=== PATIENT | female | born 1940 | race Caucasian/White ===

== ENCOUNTER → 2016-04-13 | Outpatient (REF) | payer MEDICARE, BC ==
[2016-04-13 13:16] LABS: ALBUMIN 3.7 GM/DL (3.2-5.2); ALBUMIN/GLOBULIN RATIO 0.9 (1.00-1.93); BILIRUBIN,TOTAL 0.6 MG/DL (0.2-1.0); CALCIUM LEVEL 9.4 MG/DL (8.8-10.2); CREATININE FOR GFR 0.97 MG/DL (0.55-1.02); FREE T4 1.44 NG/DL (0.76-1.46); GLOMERULAR FILTRATION RATE 59.3 (>39); TOTAL PROTEIN 7.8 GM/DL (6.4-8.2)
[2016-04-13 13:19] LABS: BASO # 0.1 K/mm3 (0.0-0.2); BASO % 1.1 % (0.0-1.0); EOS # 0.1 K/mm3 (0.0-0.50); EOS % 1.9 % (0.0-3.0); LARGE UNSTAINED CELL # 0.1 K/mm3 (0.0-0.4); LARGE UNSTAINED CELL % 1.8 % (0.0-4.0); LYMPH % 34.2 % (24.0-44.0); MEAN CORPUSCULAR HEMOGLOBIN 29.4 pg (27.0-33.0); MEAN CORPUSCULAR HGB CONC 32.6 g/dl (32.0-36.5); MEAN CORPUSCULAR VOLUME 90.1 fl (80.0-96.0); MONO # 0.5 K/mm3 (0.0-0.8); MONO % 8.6 % (0.0-5.0); NEUTROPHILS # 2.9 K/mm3 (1.8-7.7); NEUTROPHILS % 52.4 % (36.0-66.0); PLATELET COUNT, AUTOMATED 121 k/mm3 (150-450); RED CELL DISTRIBUTION WIDTH 12.8 % (11.5-14.5); WHITE BLOOD COUNT 5.5 K/mm3 (4.0-10.0)
== END ==
LOC: M SFHCADAM 08:24
PROVIDERS: ATTEND Family Medicine
DX: M32.8 Other forms of systemic lupus erythematosus (principal); E03.9 Hypothyroidism, unspecified; E66.9 Obesity, unspecified

== ENCOUNTER → 2016-12-27 | Outpatient (CLI) | payer MEDICARE, BC ==
--- NOTE | 2016-12-27 11:24 | REP ---
PA and lateral chest: Comparison is 2006. There is a faintly visible nodular density in the right costophrenic angle, not significantly changed, likely a granuloma. The lung wilcox otherwise clear. Cardiac size is normal. The randolph and mediastinum are unchanged. There is diffuse demineralization, thoracic scoliosis and kyphosis. These findings are unchanged. Impression: There are no new or acute cardiopulmonary findings. There are chronic stable findings as described. Signed by Zane Christine MD 12/27/2016 11:15 A
== END ==
LOC: M ADAMS 10:43
PROVIDERS: ATTEND Family Medicine
DX: R06.2 Wheezing (principal); R63.4 Abnormal weight loss; R53.81 Other malaise
CPT/HCPCS: 71020; G0463

== ENCOUNTER → 2017-03-10 | Outpatient (REF) | payer MEDICARE, BC ==
[2017-03-10 20:58] LABS: ALBUMIN 4.2 GM/DL (3.2-5.2); ALBUMIN/GLOBULIN RATIO 1.05 (1.00-1.93); BILIRUBIN,TOTAL 0.5 MG/DL (0.2-1.0); CALCIUM LEVEL 9.3 MG/DL (8.8-10.2); CREATININE FOR GFR 1.08 MG/DL (0.55-1.02); GLOMERULAR FILTRATION RATE 52.2 (>39); POTASSIUM SERUM 3.9 MEQ/L (3.5-5.1); TOTAL PROTEIN 8.2 GM/DL (6.4-8.2)
== END ==
LOC: M SFHCADAM 11:40
PROVIDERS: ATTEND Family Medicine
DX: L93.0 Discoid lupus erythematosus (principal)

== ENCOUNTER 2017-10-07 13:47 | Emergency (ER) | payer MEDICARE, BC ==
[2017-10-07 15:15] LABS: BASO % 0.4 % (0.0-1.0); EOS # 0.1 10^3/uL (0.0-0.50); EOS % 1.6 % (0.0-3.0); HEMOGLOBIN 12.3 g/dl (12.0-15.5); IMMATURE GRANULOCYTE % 0.4 % (0-3.0); LYMPH # 1.6 10^3/uL (1.5-4.5); LYMPH % 31.4 % (24.0-44.0); MEAN CORPUSCULAR HEMOGLOBIN 29.7 pg (27.0-33.0); MEAN CORPUSCULAR HGB CONC 33.2 g/dl (32.0-36.5); MEAN CORPUSCULAR VOLUME 89.4 fl (80.0-96.0); MONO # 0.4 10^3/uL (0.0-0.8); MONO % 8.5 % (0.0-5.0); NEUTROPHILS # 2.9 10^3/uL (1.8-7.7); NEUTROPHILS % 57.7 % (36.0-66.0); PLATELET COUNT, AUTOMATED 103 10^3/uL (150-450); RED BLOOD COUNT 4.14 10^6/uL (4.00-5.40); RED CELL DISTRIBUTION WIDTH 12.3 % (11.5-14.5); WHITE BLOOD COUNT 4.9 10^3/uL (4.0-10.0)
[2017-10-07 15:51] LABS: ALBUMIN 3.8 GM/DL (3.2-5.2); ALBUMIN/GLOBULIN RATIO 0.97 (1.00-1.93); ALKALINE PHOSPHATASE 64 U/L (45-117); ALT/SGPT 35 U/L (12-78); ANION GAP 6 MEQ/L (8-16); AST/SGOT 32 U/L (7-37); BILIRUBIN,DIRECT 0.1 MG/DL (0.0-0.2); BILIRUBIN,TOTAL 0.4 MG/DL (0.2-1.0); BLOOD UREA NITROGEN 21 MG/DL (7-18); CARBON DIOXIDE LEVEL 31 MEQ/L (21-32); CHLORIDE LEVEL 104 MEQ/L (98-107); CREATININE FOR GFR 1.16 MG/DL (0.55-1.30); FREE T4 1.24 NG/DL (0.76-1.46); GLUCOSE, FASTING 102 MG/DL (70-100); POTASSIUM SERUM 4.4 MEQ/L (3.5-5.1); SODIUM LEVEL 141 MEQ/L (136-145); TOTAL PROTEIN 7.7 GM/DL (6.4-8.2)
== END 2017-10-07 17:39 | disposition home or self-care (01) ==
LOC: M ED 13:47
DX: R00.2 Palpitations (principal); M79.662 Pain in left lower leg; K21.9 Gastro-esophageal reflux disease without esophagitis; E07.9 Disorder of thyroid, unspecified; G47.30 Sleep apnea, unspecified; Z79.899 Other long term (current) drug therapy; Z79.890 Hormone replacement therapy; Z91.048 Other nonmedicinal substance allergy status; F17.210 Nicotine dependence, cigarettes, uncomplicated
CPT/HCPCS: 71045

== ENCOUNTER → 2018-06-07 | Outpatient (REF) | payer MEDICARE, BC ==
[~2018-06-07] MED LIST: HYDR200T3; LEVO137T2; PRED1TABL; TRAM50TA2
[2018-06-07 12:42] LABS: BASO % 0.6 % (0.0-1.0); EOS # 0.1 10^3/uL (0.0-0.50); EOS % 2.3 % (0.0-3.0); HEMATOCRIT 39.3 % (36.0-47.0); LYMPH # 1.8 10^3/uL (1.5-4.5); LYMPH % 33.6 % (24.0-44.0); MEAN CORPUSCULAR HEMOGLOBIN 30.2 pg (27.0-33.0); MEAN CORPUSCULAR HGB CONC 33.1 g/dl (32.0-36.5); MEAN CORPUSCULAR VOLUME 91.2 fl (80.0-96.0); MONO # 0.5 10^3/uL (0.0-0.8); NEUTROPHILS # 2.8 10^3/uL (1.8-7.7); NEUTROPHILS % 53.3 % (36.0-66.0); PLATELET COUNT, AUTOMATED 130 10^3/uL (150-450); RED BLOOD COUNT 4.31 10^6/uL (4.00-5.40); WHITE BLOOD COUNT 5.3 10^3/uL (4.0-10.0)
[2018-06-07 13:48] LABS: BILIRUBIN,TOTAL 0.6 MG/DL (0.2-1.0); CALCIUM LEVEL 9.4 MG/DL (8.8-10.2); GLOMERULAR FILTRATION RATE 56.9 (>39); POTASSIUM SERUM 4.2 MEQ/L (3.5-5.1); TOTAL PROTEIN 7.8 GM/DL (6.4-8.2)
== END ==
LOC: M SFHCADAM 09:11
PROVIDERS: ATTEND Family Medicine
DX: L93.0 Discoid lupus erythematosus (principal)

== ENCOUNTER → 2019-02-23 | Outpatient (CLI) | payer MEDICARE, BC ==
[~2019-02-23] MED LIST changes: +EQL50TAB2 PO; +FISH1000 PO; +FLAX1300 PO; +GLUC1TAB58 PO; -HYDR200T3; +HYDR200T3 PO; -LEVO137T2; +LEVO137T2 PO; +MULTCAP PO; +OYST1TAB PO; -PRED1TABL; +PRED1TABL PO; +VITA500030 PO
[2019-02-23 09:37] LABS: HEMATOCRIT 37.4 % (36.0-47.0); HEMOGLOBIN 11.8 g/dl (12.0-15.5); MEAN CORPUSCULAR HGB CONC 31.6 g/dl (32.0-36.5); MEAN CORPUSCULAR VOLUME 91.9 fl (80.0-96.0); PLATELET COUNT, AUTOMATED 124 10^3/uL (150-450); RED BLOOD COUNT 4.07 10^6/uL (4.00-5.40); WHITE BLOOD COUNT 3.9 10^3/uL (4.0-10.0)
[2019-02-23 09:48] LABS: INR 1.1; PROTHROMBIN TIME 13.9 SECONDS (11.8-14.0)
--- NOTE | 2019-02-23 10:02 | REP ---
Clinical: Preoperative assessment. Comparison: 12/27/2016 . Technique: PA and lateral. Findings: The mediastinum and cardiac silhouette are normal. The lung wilcox demonstrate chronic interstitial changes without acute consolidation, effusion, or pneumothorax. The skeletal structures are intact and normal. Impression: 1. No acute cardiopulmonary process. Electronically Signed by Adolfo Huynh MD 02/23/2019 09:54 A
[2019-02-23 10:05] LABS: ERYTHROCYTE SEDIMENTATION RATE 30 mm/hr (0-30)
[2019-02-23 10:06] LABS: ALBUMIN 3.7 GM/DL (3.2-5.2); ALT/SGPT 33 U/L (12-78); BILIRUBIN,TOTAL 0.4 MG/DL (0.2-1.0); BLOOD UREA NITROGEN 15 MG/DL (7-18); CALCIUM LEVEL 9.4 MG/DL (8.8-10.2); CARBON DIOXIDE LEVEL 33 MEQ/L (21-32); CHLORIDE LEVEL 107 MEQ/L (98-107); CREATININE FOR GFR 0.87 MG/DL (0.55-1.30); GLOMERULAR FILTRATION RATE > 60.0 (>32); GLUCOSE, FASTING 65 MG/DL (70-100); POTASSIUM SERUM 3.8 MEQ/L (3.5-5.1); SODIUM LEVEL 143 MEQ/L (136-145); TOTAL PROTEIN 7.6 GM/DL (6.4-8.2)
--- NOTE | 2019-02-24 00:57 | ECGEPIP ---
[facility] Test Date: 2019-02-23 Pat Name: ROGE PETIT Department: Room: - Gender: Female Paper Machine Tender: HANSEL : 1940 Requested By: Axel Kirkpatrick @ [facility] Order Number: [id number] Reading MD: Aaron Liu Measurements Intervals [place] Rate: 70 P: 52 [place]: 173 QRS: -27 QRSD: 105 T: 65 QT: 412 QTc: 445 Interpretive Statements SINUS RHYTHM WITH FREQUENT VENTRICULAR PREMATURE COMPLEXES BORDERLINE LEFT AXIS DEVIATION POOR R-WAVE PROGRESSION MINIMAL VOLTAGE CRITERIA FOR LVH, CONSIDER NORMAL VARIANT NONSPECIFIC T-WAVE ABNORMALITY ABNORMAL RHYTHM ECG PRIOR TRACING ON 10/07/2017 AT 2:23 P.M., NO SIGNIFICANT CHANGES Electronically Signed on 02-24-2019 0:56:50 EST by Aaron Liu
== END ==
LOC: M LAB 09:11
PROVIDERS: ATTEND Orthopaedic Surgery
DX: Z01.818 Encounter for other preprocedural examination (principal); M16.12 Unilateral primary osteoarthritis, left hip; R94.31 Abnormal electrocardiogram [ECG] [EKG]; Z79.52 Long term (current) use of systemic steroids; Z79.899 Other long term (current) drug therapy

== ENCOUNTER 2019-03-14 07:18 | Inpatient (IN) | payer MEDICARE, BC ==
--- NOTE | 2019-03-09 08:50 | HPE ---
DATE OF ADMISSION: 03/14/2019 HISTORY OF PRESENT ILLNESS: This is a pleasant 78-year-old female with continuing symptomatic left hip osteoarthritis. She has consented for left total hip arthroplasty per Dr. Axel Kirkpatrick. Medical optimization per Erna Gao. X-rays are consistent with advanced osteoarthritis. ALLERGIES: None known to drugs. MEDICATIONS: List includes Plaquenil 200 mg tablet 1 tablet with food or milk orally once a day. Prednisone 1 mg tablet 1 tablet daily orally every other day. Zyrtec allergy 10 mg tablet 1 tablet orally once a day. Synthroid 137 mcg tablet 1 tablet on an empty stomach in the morning orally once a day. Tramadol HCL 50 mg tablet 1 tablet orally every 6 hours as needed. MEDICAL PROBLEM LIST: Includes symptomatic left hip osteoarthritis. Lupus. Hypothyroidism. Gastroesophageal reflux disease. Chronic back pain. PAST SURGICAL HISTORY: Right hip replacement 2003 Dr. Bruce Mccoy. Right leg surgery times 4 1958 and 1960. Partial hysterectomy 1970. Benign breast cyst 1970. 1968. D and C in 1970. SOCIAL HISTORY: Greater than 10 years and she smoked. FAMILY HISTORY: Noncontributory. REVIEW OF SYSTEMS: Denies chest pain, shortness of breath, dyspnea on exertion, fever, chills, malaise, upper respiratory urinary tract symptoms. Vitals: Blood pressure was 126/70, pulse 72, temperature 97.2, height 62, weight 141 pounds 6 ounces, BMI 25.9, respiration 18. This is a pleasant well- developed, well-nourished 78-year-old female in no acute distress. Alert and oriented times 3. Mood and affect are appropriate. Lower extremities: Benign noninfectious looking without any skin defects. Left hip range of motion is limited with irritability throughout range. Bowels soft, nontender times four. Chest rises symmetrically. Regular rate and rhythm. Lungs: Clear to auscultation. Neck: Supple. Negative JVD or bruits. Normocephalic. IMPRESSION: 1. Left hip symptomatic osteoarthritis. 2. To the patient consented for left total hip arthroplasty per Dr. Axel Kirkpatrick. 3. Medical optimization per Dr. Low. 4. On-call to OR 1 gram IV Kefzol in OR. 5. SCD and RADHIKA in the OR. edited: 03/09/2019 1047 tkf MTDD
[2019-03-14] VITALS (7 sets, daily range): BP systolic 127–160; BP diastolic 74–90
[~2019-03-14] VITALS: Ht 160 cm; Wt 66.2 kg
[~2019-03-14 07:18] MED LIST changes: +LIDOCAINE 1% MDV 20ML VIAL SQ PRN; +LR 1,000 ML IV ONE; +ceFAZolin SOD 2 GM in IV 1 EA IV ONE
[2019-03-14] MEDS ORDERED: VITA500079 PO (08:00)
[2019-03-14] MEDS ORDERED: fentaNYL 100 MCG/2 ML INJECTION (J3010) As Ordered ONE (08:20)
[2019-03-14] MEDS ORDERED: MIDAZOLAM INJ 2 MG/2 ML VIAL (J2250) As Ordered ONE (08:20)
[2019-03-14] MEDS ORDERED: LIDOCAINE 2% INJ 100 MG/5 ML SDV (FOR ANES.) As Ordered ONE (08:20)
[2019-03-14] MEDS ORDERED: PROPOFOL 500 MG/50 ML VIAL As Ordered ONE (08:20)
[2019-03-14] MEDS ORDERED: dexameTHASONE 4 MG/ML 1ML VIAL (J1100) As Ordered ONE (08:21)
[2019-03-14] MEDS ORDERED: ONDANSETRON 4MG/2ML VIAL (J2405) As Ordered ONE (08:21)
[2019-03-14] MEDS ORDERED: TRANEXAMIC ACID 100 MG/ML 10ML VIAL As Ordered ONE (08:40)
[2019-03-14] MEDS ORDERED: ceFAZolin 1GM INJ (J0690 PER 500MG) As Ordered ONE (08:40)
[2019-03-14] MEDS ORDERED: EPINEPHrine INJ 1 MG/ML 1ML VIAL As Ordered ONE (08:40)
[2019-03-14] MEDS ORDERED: BUPIVACAINE LIPOSOME/PF 1.3% 20ML VIAL (13.3MG/ML)(EXPAREL)(C9290 PER1MG) As Ordered ONE (08:41)
--- NOTE | 2019-03-14 09:36 | IPN ---
DATE: 03/14/2019 Patient was seen and examined. She wished to ahead with a left hip arthroplasty. She is aware of the nature of this, the risks of bleeding, infection, damage to nerves, vessels, persistent pain, wear loosening, dislocation, leg length inequality, blood clots, medical problems, among others.
[2019-03-14] MEDS ORDERED: PERCOCET 5MG/325MG TAB PO PRN (12:00)
[2019-03-14] MEDS ORDERED: ACETAMINOPHEN TAB 650MG DOSE (2X325MG) PO PRN (12:00)
[2019-03-14] MEDS ORDERED: LR 1,000 ML IV SCH ×2 (12:00)
[2019-03-14] MEDS ORDERED: HYDROMORPHONE HCL 0.5 MG/ 0.5 ML SYRINGE (J1170 PER 1) IV PRN (12:00)
[2019-03-14] MEDS ORDERED: MORPHINE 2 MG/ML 1ML VIAL (J2270) IV PRN ×2 (12:00)
[2019-03-14] MEDS ORDERED: fentaNYL 100 MCG/2 ML INJECTION (J3010) IV PRN (12:00)
[2019-03-14] MEDS ORDERED: ONDANSETRON 4MG/2ML VIAL (J2405) IV PRN ×2 (12:00)
[2019-03-14] MEDS ORDERED: FLEET ENEMA PR PRN (12:00)
--- NOTE | 2019-03-14 12:38 | REP ---
LEFT HIP, TWO VIEWS: Two views of the left hip are performed. There is placement of a total hip prosthesis which is in good position. The osseous structures are intact and well aligned. Metallic skin lucio are seen laterally. Electronically Signed by Zane Fermin MD 03/14/2019 07:59 P
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
[2019-03-14] MEDS: ceFAZolin SOD 2 GM in IV 1 EA IV SCH (16:47)
[2019-03-14] MEDS: PERCOCET 5MG/325MG TAB PO PRN ×2 (16:47→22:53)
[2019-03-15] MEDS: ceFAZolin SOD 2 GM in IV 1 EA IV SCH (01:53)
[2019-03-15 02:15] VITALS: BP 129/74
[2019-03-15] MEDS ORDERED: LEVOTHYROXINE 137MCG TABLET (0.137MG) PO SCH (06:00)
[2019-03-15] MEDS ORDERED: PERC5TAB12 PO (06:08)
[2019-03-15] MEDS ORDERED: XARE10TA PO (06:08)
[2019-03-15 06:27] LABS: HEMATOCRIT 30.7 % (36.0-47.0); HEMOGLOBIN 10.1 g/dl (12.0-15.5); MEAN CORPUSCULAR HEMOGLOBIN 29.8 pg (27.0-33.0); MEAN CORPUSCULAR HGB CONC 32.9 g/dl (32.0-36.5); MEAN CORPUSCULAR VOLUME 90.6 fl (80.0-96.0); PLATELET COUNT, AUTOMATED 111 10^3/uL (150-450); RED BLOOD COUNT 3.39 10^6/uL (4.00-5.40); WHITE BLOOD COUNT 6.7 10^3/uL (4.0-10.0)
[2019-03-15] MEDS: PERCOCET 5MG/325MG TAB PO PRN ×2 (08:14→13:19)
[2019-03-15] MEDS ORDERED: HYDROXYCHLOROQUINE 200 MG TAB PO SCH (09:00)
[2019-03-15] MEDS ORDERED: SENOKOT S TAB PO SCH (09:00)
[2019-03-15] MEDS ORDERED: MIRALAX *UNIT DOSE* 17GM PACKET PO SCH (09:00)
[2019-03-15] MEDS ORDERED: MOM 30ML SUSPENSION UDC PO SCH (09:00)
[2019-03-15] MEDS ORDERED: predniSONE 1 MG TAB PO SCH (09:00)
--- NOTE | 2019-03-15 09:32 | IPN ---
DATE: 03/15/2019 Landy is seen postoperatively. She is doing well. No chest pain. No shortness of breath. Blood pressure is well controlled. It is 120-130 range. PHYSICAL EXAM: VITAL SIGNS: Stable. 129/74. LUNGS: Clear. IMPRESSION: 1. Lupus. Stable. She is on Plaquenil 200 mg daily. I increased her prednisone to a milligram daily, which is essentially doubling her dose in the postoperative period. On discharge, she can go back to the planned taper as set out by her proj engineer in [place]. 2. Hypothyroidism. Continue levothyroxine 137 mcg daily. Call for any medical issues that would require us to see her again during this hospitalization.
[2019-03-15] MEDS ORDERED: RIVAROXABAN 10 MG TAB (XARELTO) PO SCH (18:00)
--- NOTE | 2019-03-15 19:24 | RO ---
DATE OF PROCEDURE: 03/14/2019 PREOPERATIVE DIAGNOSIS: Left hip osteoarthritis. POSTOPERATIVE DIAGNOSIS: Left hip osteoarthritis. OPERATIVE PROCEDURE: Left total hip arthroplasty using a [place] high offset size 6+ 1.5 36 ball and a 54 acetabular component. SURGEON: Axel Kirkpatrick MD GREEN INSPECTOR: KAREN Thao ANESTHESIA: Spinal ESTIMATED BLOOD LOSS: 200 mL COMPLICATIONS: None INDICATIONS 78-year-old woman who has had some gradually worsening left hip pain and wished to go ahead with arthroplasty. DESCRIPTION OF PROCEDURE The patient was taken to the operating room and placed in supine position after spinal anesthesia was induced. She was then turned on the right lateral decubitus position on the [place] positioner. All areas were padded appropriately. The left hip was prepped and draped in the usual sterile fashion. Time-out was performed and longitudinal incision was made over the lateral aspect of the hip and sharp dissection was carried down through the subcutaneous tissue. I then sized the fascia elbert, controlled hemostasis and then divided the anterior 40% or so of the abductor off of the anterior aspect of the proximal femur. I then was able to dislocate the hip and use a canal initiating reamer, the canal finding reamer, lateralizing reamer and then sequentially reamed up to a size 6 which had good bony purchase and what we had templated to. I then used a saw to remove the head at about three-quarters of a fingerbreadth up the lesser trochanter. We prepared the acetabulum, anterior-posterior retractors were placed. I removed soft tissue from around the acetabulum. I then sequentially reamed up to a size 53 which had good bleeding bone and good concentric reaming. I was able to medialized it few millimeters. I then impacted on a 54 Gription cup and the appropriate amount of anteversion and horizontal tilt. Excellent position was noted. I then placed the apex hole eliminator. We had made sure this cup was well seated, inserted the polyethylene 36 x 54, and impacted it in place. We then broached the femoral side up to a size 6, which had good fit and fill. I used a calcar planer to smooth off the calcar some and then did a trial reduction with a standard 1.5 and a high offset 1.5 and I had a slight preference for the high offset 1.5 for stability, which was excellent in full extension, external rotation, full flexion, internal rotation and there was minimal shuck in full extension. Soft tissue tension seemed appropriate. I then removed the trial components, inserted the actual stem, impacted it in place taking care not to fracture the femur and then impacted on the 1.5 36 ball. I made sure this was seated. We then reduced the hip. Again put the hip through range of motion. I was very pleased with the stability. I then irrigated, placed the TXA and the Exparel in the deep tissues and repaired the minimus with #1 Vicryl suture, the abductor with #1 Vicryl suture. Several stitches being placed through the bone because she had avulsed off some of her abductor preoperatively so this was reattached. I then repaired the fascia elbert with #1 Vicryl suture and running Stratafix suture, subcu with #2-0 Vicryl and the skin with lucio. Sterile dressing was applied. She was taken to recovery room in stable condition. No known complications. The plan will be routine postop. The occupational therapist's assistant was instrumental in holding retractors and assisting in reducing and dislocating the hip and assisting in wound closure.
== END 2019-03-15 13:45 | disposition home or self-care (01) | DRG 470 ==
LOC: M OR 07:18 → M MS5PR 13:00
PROVIDERS: ADMIT Orthopaedic Surgery; ATTEND Orthopaedic Surgery
PROC: 0SRB02A Replacement of Left Hip Joint with Metal on Polyethylene Synthetic Substitute, Uncemented, Open Approach (ICD-10-PCS; principal; 2019-03-14 09:25)
DX: M16.12 Unilateral primary osteoarthritis, left hip (principal); Z79.899 Other long term (current) drug therapy; Z79.52 Long term (current) use of systemic steroids; K21.9 Gastro-esophageal reflux disease without esophagitis; E03.9 Hypothyroidism, unspecified; M54.5 Low back pain; Z87.891 Personal history of nicotine dependence; M32.10 Systemic lupus erythematosus, organ or system involvement unspecified

== ENCOUNTER → 2019-08-29 | Outpatient (REF) | payer MEDICARE, BC ==
[~2019-08-29] MED LIST changes: -LIDOCAINE 1% MDV 20ML VIAL SQ PRN; -LR 1,000 ML IV ONE; +PERC5TAB12 PO; +VITA500079 PO; +XARE10TA PO; -ceFAZolin SOD 2 GM in IV 1 EA IV ONE
[2019-08-29 17:12] LABS: BASO % 0.4 % (0.0-1.0); EOS # 0.1 10^3/uL (0.0-0.5); EOS % 2.5 % (0.0-3.0); HEMATOCRIT 35.3 % (36.0-47.0); HEMOGLOBIN 11.8 g/dl (12.0-15.5); LYMPH # 1.5 10^3/uL (1.5-5.0); LYMPH % 31.6 % (24.0-44.0); MEAN CORPUSCULAR HEMOGLOBIN 28.6 pg (27.0-33.0); MEAN CORPUSCULAR HGB CONC 33.4 g/dl (32.0-36.5); MEAN CORPUSCULAR VOLUME 85.7 fl (80.0-96.0); MONO # 0.5 10^3/uL (0.0-0.8); NEUTROPHILS # 2.7 10^3/uL (1.5-8.5); NEUTROPHILS % 55.3 % (36.0-66.0); PLATELET COUNT, AUTOMATED 135 10^3/uL (150-450); RED BLOOD COUNT 4.12 10^6/uL (4.00-5.40); WHITE BLOOD COUNT 4.8 10^3/uL (4.0-10.0)
[2019-08-29 17:53] LABS: ALT/SGPT 28 U/L (12-78); C REACTIVE PROTEIN QUANTITATIV < 0.30 MG/DL (0.00-0.30); COMPLEMENT C3 62 MG/DL (90-180); COMPLEMENT C4 7 MG/DL (10-40); CREATININE FOR GFR 0.77 MG/DL (0.55-1.30); GLOMERULAR FILTRATION RATE > 60.0 (>32)
[2019-08-29 19:00] LABS: ERYTHROCYTE SEDIMENTATION RATE 27 mm/hr (0-30)
[2019-08-31 14:08] LABS: ANTI DOUBLE STRAND-DNA AB 21 IU/mL (0-9); ANTINUCLEAR ANTIBODIES DIRECT Positive (Negative); RNP ANTIBODIES 0.2 AI (0.0-0.9); SJOGREN'S ANTI SS-A 2.3 AI (0.0-0.9); SJOGREN'S ANTI SS-B <0.2 AI (0.0-0.9); SMITH ANTIBODIES <0.2 AI (0.0-0.9)
== END ==
LOC: M LABDRWAD 16:05
PROVIDERS: ATTEND Nurse Practitioner
DX: M32.9 Systemic lupus erythematosus, unspecified (principal); Z79.899 Other long term (current) drug therapy

== ENCOUNTER 2019-11-01 10:00 | Day surgery (SDC) | payer MEDICARE, BC ==
[~2019-11-01 10:00] MED LIST changes: +BSS IRR 500ML/OMIDRIA 4ML IRR BAG (OR ONLY) (J1097 PER ML) As Ordered ONE; +CEFUROXIME 1MG/0.1ML INTRACAMERAL INJ As Ordered ONE; +DUOVISC (0.50ML VISCOAT/0.55ML PROVISC) OPHTH KIT As Ordered ONE; +POVIDONE-IODINE 5% OPHTH PREP SOL 30ML As Ordered ONE
[2019-11-01] MEDS ORDERED: PROPARACAINE 0.5% OPHTH SOL 15ML As Ordered ONE (10:08)
[2019-11-01] MEDS ORDERED: PHENYLEPHRINE 2.5% OPHTH SOL 2ML As Ordered ONE (10:08)
[2019-11-01] MEDS ORDERED: OFLOXACIN 0.3 % (OCUFLOX) OPTH SOL 5ML As Ordered ONE (10:08)
[2019-11-01] MEDS ORDERED: TROPICAMIDE 1% OPHTH SOLN 2ML As Ordered ONE (10:08)
[2019-11-01] MEDS ORDERED: MIDAZOLAM INJ 2MG/2ML VIAL (J2250 PER 1MG) As Ordered ONE (10:36)
[2019-11-01] MEDS ORDERED: fentaNYL 100 MCG/2 ML INJECTION (J3010) As Ordered ONE (10:36)
[2019-11-20] MEDS ORDERED: D31000TA2 PO (07:57)
--- NOTE | 2019-12-05 07:57 | RO ---
DATE OF OPERATION: 11/01/2019 PREOPERATIVE DIAGNOSIS: 1. Visually significant nuclear sclerotic cataract, right eye. POSTOPERATIVE DIAGNOSIS: 1. Visually significant nuclear sclerotic cataract, right eye. PROCEDURE: 1. Cataract extraction with use of phacoemulsification, and placement of intraocular lens, AU00T0, 19.5D, right eye. SURGEON: Joe Geller DO SCRAP BREAKER: ANESTHESIA: Local (Omidria with MAC) COMPLICATIONS: None POSTOPERATIVE CONDITION: Stable INDICATIONS FOR SURGERY: 1. Blurred vision affecting patients activities of daily living DESCRIPTION OF PROCEDURE: The patient was seen in the preoperative area and properly identified. The correct operative eye was identified and marked. The patient received topical anesthetic, antibiotics, and topical dilating drops. The patient was then transferred to the operating room. The correct side was re-identified and a time-out was performed. The eye was prepped and draped in a sterile fashion. The eyelids were isolated with Tegaderm tape and the lids were held open with an adjustable speculum. A 1.0mm paracentesis incision was made. Omidria was then injected into the anterior chamber. Viscoelastic was then injected into the anterior chamber through the paracentesis. Using a 2.4mm sharp-tipped keratome, the anterior chamber was entered via a temporal clear cornea incision. A continuous curvilinear capsulorrhexis was created with Utrata forceps. Hydrodissection was performed with BSS on a blunt cannula until the nucleus was able to rotate freely. The crystalline lens was phacoemulsified and aspirated. Irrigation/aspiration was used to remove the cortical material Cohesive viscoelastic was placed into the capsular bag to deepen it. The implant was placed into the capsular bag and allowed to unfold. Placement was confirmed by visualizing the anterior capsulorrhexis. Irrigation/aspiration was used to remove the viscoelastic. The clear corneal incision was hydrated with BSS on a blunt cannula. The lens was well positioned. Intracameral antibiotic was injected into the anterior chamber. The incisions were then tested for leaks and found to be negative. The eye was then palpated for appropriate pressure and adjusted accordingly with BSS. The eyelid speculum was then carefully removed. A shield was placed over the eye. The patient tolerated the procedure well and was discharge to the recovery unit in a stable condition. ALEISHA
== END 2019-11-01 11:20 | disposition home or self-care (01) ==
LOC: M SDC 10:00
PROVIDERS: ATTEND Ophthalmology
DX: H25.11 Age-related nuclear cataract, right eye (principal); E03.9 Hypothyroidism, unspecified; M32.10 Systemic lupus erythematosus, organ or system involvement unspecified; K21.9 Gastro-esophageal reflux disease without esophagitis; Z79.899 Other long term (current) drug therapy
CPT/HCPCS: 66984; J1097; J2250; J3010; V2632

== ENCOUNTER → 2019-11-24 | Outpatient (CLI) | payer MEDICARE, BC ==
[~2019-11-24] MED LIST changes: -BSS IRR 500ML/OMIDRIA 4ML IRR BAG (OR ONLY) (J1097 PER ML) As Ordered ONE; -CEFUROXIME 1MG/0.1ML INTRACAMERAL INJ As Ordered ONE; +D31000TA2 PO; -DUOVISC (0.50ML VISCOAT/0.55ML PROVISC) OPHTH KIT As Ordered ONE; -POVIDONE-IODINE 5% OPHTH PREP SOL 30ML As Ordered ONE
== END ==
LOC: M LABSMTC 08:23
PROVIDERS: ATTEND Anesthesiology
DX: Z01.812 Encounter for preprocedural laboratory examination (principal); Z20.828 Contact with and (suspected) exposure to other viral communicable diseases
CPT/HCPCS: C9803; U0003

== ENCOUNTER 2019-11-29 08:02 | Day surgery (SDC) | payer MEDICARE, BC ==
[~2019-11-29] VITALS: Ht 160 cm; Wt 66.2 kg
[~2019-11-29 08:02] MED LIST changes: +BSS IRR 500ML/OMIDRIA 4ML IRR BAG (OR ONLY) (J1097 PER ML) As Ordered ONE; +CEFUROXIME 1MG/0.1ML INTRACAMERAL INJ As Ordered ONE; +DUOVISC (0.50ML VISCOAT/0.55ML PROVISC) OPHTH KIT As Ordered ONE; +OFLOXACIN 0.3 % (OCUFLOX) OPTH SOL 5ML OS ONE; +PHENYLEPHRINE 2.5% OPHTH SOL 2ML OS ONE; +POVIDONE-IODINE 5% OPHTH PREP SOL 30ML As Ordered ONE; +PROPARACAINE 0.5% OPHTH SOL 15ML OS ONE; +TROPICAMIDE 1% OPHTH SOLN 2ML OS ONE
[2019-11-29] MEDS ORDERED: MIDAZOLAM INJ 2MG/2ML VIAL (J2250 PER 1MG) As Ordered ONE (10:15)
[2019-11-29] MEDS ORDERED: fentaNYL 250 MCG/5 ML INJECTION (J3010) As Ordered ONE (10:15)
[2019-11-29 11:20] VITALS: BP 126/77
== END 2019-11-29 11:22 | disposition home or self-care (01) ==
LOC: M SDC 08:02
PROVIDERS: ATTEND Ophthalmology
DX: H25.12 Age-related nuclear cataract, left eye (principal); E03.9 Hypothyroidism, unspecified; M32.9 Systemic lupus erythematosus, unspecified; K21.9 Gastro-esophageal reflux disease without esophagitis; Z79.899 Other long term (current) drug therapy
CPT/HCPCS: 66984; J1097; J2250; J3010; V2632

== ENCOUNTER → 2020-05-05 | Outpatient (REF) | payer MEDICARE, BC ==
[~2020-05-05] MED LIST changes: -BSS IRR 500ML/OMIDRIA 4ML IRR BAG (OR ONLY) (J1097 PER ML) As Ordered ONE; -CEFUROXIME 1MG/0.1ML INTRACAMERAL INJ As Ordered ONE; -DUOVISC (0.50ML VISCOAT/0.55ML PROVISC) OPHTH KIT As Ordered ONE; -OFLOXACIN 0.3 % (OCUFLOX) OPTH SOL 5ML OS ONE; -PHENYLEPHRINE 2.5% OPHTH SOL 2ML OS ONE; -POVIDONE-IODINE 5% OPHTH PREP SOL 30ML As Ordered ONE; -PROPARACAINE 0.5% OPHTH SOL 15ML OS ONE; -TROPICAMIDE 1% OPHTH SOLN 2ML OS ONE
[2020-05-05 18:28] LABS: BASO % 0.6 % (0.0-1.0); EOS # 0.1 10^3/uL (0.0-0.5); EOS % 1.5 % (0.0-3.0); HEMATOCRIT 36.1 % (36.0-47.0); HEMOGLOBIN 12.1 g/dl (12.0-15.5); LYMPH # 1.5 10^3/uL (1.5-5.0); LYMPH % 28.2 % (24.0-44.0); MEAN CORPUSCULAR HGB CONC 33.5 g/dl (32.0-36.5); MEAN CORPUSCULAR VOLUME 89.4 fl (80.0-96.0); MONO # 0.8 10^3/uL (0.0-0.8); MONO % 14.1 % (0.0-5.0); NEUTROPHILS % 55.4 % (36.0-66.0); PLATELET COUNT, AUTOMATED 140 10^3/uL (150-450); RED BLOOD COUNT 4.04 10^6/uL (4.00-5.40); WHITE BLOOD COUNT 5.3 10^3/uL (4.0-10.0)
[2020-05-05 19:10] LABS: ALT/SGPT 27 U/L (12-78); BILIRUBIN,TOTAL 0.5 MG/DL (0.2-1.0); BLOOD UREA NITROGEN 13 MG/DL (7-18); CALCIUM LEVEL 9.5 MG/DL (8.8-10.2); CARBON DIOXIDE LEVEL 31 MEQ/L (21-32); CHLORIDE LEVEL 103 MEQ/L (98-107); CREATININE FOR GFR 0.77 MG/DL (0.55-1.30); FREE T4 1.62 NG/DL (0.76-1.46); GLOMERULAR FILTRATION RATE > 60.0 (>32); GLUCOSE, FASTING 93 MG/DL (70-100); POTASSIUM SERUM 4.4 MEQ/L (3.5-5.1); SODIUM LEVEL 138 MEQ/L (136-145); THYROID STIMULATING HORMONE 0.013 uIU/ML (0.358-3.740); TOTAL PROTEIN 8.1 GM/DL (6.4-8.2)
== END ==
LOC: M SFHCADAM 12:36
PROVIDERS: ATTEND Family Medicine
DX: R55 Syncope and collapse (principal); Z79.899 Other long term (current) drug therapy

== ENCOUNTER → 2020-06-12 | Outpatient (CLI) | payer MEDICARE, BC ==
--- NOTE | 2020-06-12 12:48 | REP ---
INDICATION: SYNCOPE COMPARISON: None. TECHNIQUE: Real-time ultrasound evaluation and duplex Doppler interrogation of the extracranial carotid vasculature is performed. FINDINGS: Antegrade flow is observed in both vertebral arteries. Right carotid: The right common carotid artery shows diffuse intimal thickening but is otherwise unremarkable. There minimal mixed plaquing in the right carotid bulb and proximal ICA on two-dimensional scanning. Color flow and spectral Doppler interrogation are unremarkable on the right. Velocity chart right carotid: Right CCA PSV: 94 cm/S Right ICA PSV: 70 cm/S Right ICA EDV: 22 cm/S Right ECA PSV: 57 cm/S Right ICA/CCA ratio: 0.75 Left carotid: The left common carotid artery shows diffuse intimal thickening but is otherwise unremarkable. There is minimal mixed plaquing in the left carotid bulb and proximal ICA on two-dimensional scanning. Color flow and spectral Doppler interrogation are unremarkable on the left. Velocity chart left carotid: Left CCA PSV: 97 cm/S Left ICA PSV: 90 cm/S Left ICA EDV: 27 cm/S Left ECA PSV: 76 cm/S Left ICA/CCA ratio: 0.92 IMPRESSION: Less than 50% category narrowing in the right internal carotid artery by Doppler velocity criteria. Less than 50% category narrowing in the left ICA by Doppler velocity criteria. <Electronically signed by Orlando Dior > 06/12/20 1155
== END ==
LOC: M RAD 12:12
PROVIDERS: ATTEND Family Medicine
DX: R55 Syncope and collapse (principal)

== ENCOUNTER → 2020-06-18 | Outpatient (REF) | payer MEDICARE, BC ==
[2020-06-18 13:31] LABS: FREE T4 1.7 NG/DL (0.76-1.46); THYROID STIMULATING HORMONE 0.022 uIU/ML (0.358-3.740)
== END ==
LOC: M SFHCADAM 08:44
PROVIDERS: ATTEND Family Medicine
DX: E03.9 Hypothyroidism, unspecified (principal)
CPT/HCPCS: 84439; 84443; G0463

== ENCOUNTER → 2020-07-30 | Outpatient (REF) | payer MEDICARE, BC ==
[2020-07-30 17:29] LABS: FREE T4 1.22 NG/DL (0.76-1.46); THYROID STIMULATING HORMONE 0.171 uIU/ML (0.358-3.740)
== END ==
LOC: M SFHCADAM 13:31
PROVIDERS: ATTEND Family Medicine
DX: E03.9 Hypothyroidism, unspecified (principal)
CPT/HCPCS: 84439; 84443; G0463

== ENCOUNTER → 2020-10-30 | Outpatient (REF) | payer MEDICARE, BC ==
[2020-10-30 13:15] LABS: FREE T4 1.23 NG/DL (0.76-1.46); THYROID STIMULATING HORMONE 4.03 uIU/ML (0.358-3.740)
== END ==
LOC: M SFHCADAM 08:47
PROVIDERS: ATTEND Family Medicine
DX: E03.9 Hypothyroidism, unspecified (principal)
CPT/HCPCS: 84439; 84443; G0463

== ENCOUNTER 2021-08-25 11:53 | Inpatient (IN) | payer MEDICARE, BC ==
[~2021-08-25] VITALS: Ht 160 cm; Wt 66.8 kg
[~2021-08-25 11:53] MED LIST changes: -D31000TA2 PO; +VITA100093 PO
[2021-08-25 15:53] LABS: BASO % 0.1 % (0.0-1.0); HEMATOCRIT 36.9 % (36.0-47.0); HEMOGLOBIN 12.2 g/dl (12.0-15.5); LYMPH # 1.1 10^3/uL (1.5-5.0); LYMPH % 6.8 % (24.0-44.0); MEAN CORPUSCULAR HEMOGLOBIN 29.7 pg (27.0-33.0); MEAN CORPUSCULAR HGB CONC 33.1 g/dl (32.0-36.5); MEAN CORPUSCULAR VOLUME 89.8 fl (80.0-96.0); MONO % 6.2 % (2.0-8.0); NEUTROPHILS # 14.3 10^3/uL (1.5-8.5); NEUTROPHILS % 86.4 % (36.0-66.0); PLATELET COUNT, AUTOMATED 162 10^3/uL (150-450); RED BLOOD COUNT 4.11 10^6/uL (4.00-5.40); WHITE BLOOD COUNT 16.6 10^3/uL (4.0-10.0)
[2021-08-25 16:13] LABS: BLOOD UREA NITROGEN 14 MG/DL (7-18); CALCIUM LEVEL 9.1 MG/DL (8.8-10.2); CARBON DIOXIDE LEVEL 28 MEQ/L (21-32); CHLORIDE LEVEL 94 MEQ/L (98-107); CREATININE FOR GFR 0.78 MG/DL (0.55-1.30); GLOMERULAR FILTRATION RATE > 60.0 (>32); GLUCOSE, FASTING 118 MG/DL (70-100); POTASSIUM SERUM 3.9 MEQ/L (3.5-5.1); SODIUM LEVEL 127 MEQ/L (136-145)
[2021-08-25 16:18] LABS: INR 1.09; PROTHROMBIN TIME 14.5 SECONDS (12.7-14.5)
[2021-08-25 16:34] LABS: ERYTHROCYTE SEDIMENTATION RATE 67 mm/hr (0-30)
[2021-08-25] MEDS ORDERED: NS 500 ML IV ONE (16:40)
[2021-08-25] MEDS ORDERED: ACETAMINOPHEN TAB 650MG DOSE (2X325MG) PO ONE (16:40)
[2021-08-25] MEDS ORDERED: METOCLOPRAMIDE INJ 10MG/2ML VIAL (J2765 PER 1) IV ONE (16:40)
[2021-08-25 18:29] LABS: OSMOLALITY SERUM 272 MOSM/KG (280-301)
[2021-08-25 18:42] LABS: FREE T4 1.48 NG/DL (0.76-1.46)
[2021-08-25 18:48] LABS: APPEARANCE, URINE HAZY (CLEAR); BACTERIA, URINE AUTO NEGATIVE (NEGATIVE); BILIRUBIN, URINE AUTO NEGATIVE (NEGATIVE); BLOOD, URINE BLOOD 2+ (NEGATIVE); COLOR, URINE YELLOW (YELLOW); GLUCOSE, URINE (UA) AUTO NEGATIVE (NEGATIVE); KETONE, URINE AUTO 1+ mg/dL (NEGATIVE); LEUKOCYTE ESTERASE, URINE AUTO TRACE (NEGATIVE); MUCUS, URINE SMALL (NEGATIVE); NITRITE, URINE AUTO NEGATIVE (NEGATIVE); PROTEIN, URINE AUTO 2+ mg/dL (NEGATIVE); RBC, URINE AUTO 81 /HPF (0-3); SPECIFIC GRAVITY URINE AUTO 1.026 (1.002-1.035); SQUAMOUS EPITHELIAL CELL UR AU 0 /HPF (0-6); UROBILINOGEN, URINE AUTO 0.2 mg/dL (0.0-2.0); WBC, URINE AUTO 7 /HPF (0-3)
[2021-08-25] MEDS ORDERED: MOM 30ML SUSPENSION UDC PO PRN (20:00)
[2021-08-25] MEDS ORDERED: NS 1,000 ML IV SCH (20:00)
[2021-08-25] MEDS: DOCUSATE SODIUM 100MG CAPSULE PO SCH (21:00)
[2021-08-25] MEDS ORDERED: SYNT88TA2 PO (23:18)
[2021-08-25] MEDS ORDERED: D3 M1CAP2 PO (23:18)
[2021-08-25] MEDS ORDERED: VITMTA PO (23:18)
[2021-08-25] MEDS ORDERED: OYST500T92 PO (23:18)
[2021-08-25] MEDS ORDERED: RA K500C PO (23:18)
[2021-08-25] MEDS ORDERED: ACET650T61 PO (23:19)
[2021-08-25] MEDS ORDERED: HOME MED LIST COMPLETE! XX SCH (23:20)
[2021-08-26] VITALS (7 sets, daily range): BP systolic 135–200; BP diastolic 66–97
[2021-08-26] MEDS: ACETAMINOPHEN TAB 650MG DOSE (2X325MG) PO PRN ×4 (00:18→16:19)
[2021-08-26] MEDS ORDERED: LABETALOL 100MG/20ML VIAL IV STA (00:31)
[2021-08-26] MEDS: LEVOTHYROXINE 88MCG TABLET (0.088 MG) PO SCH (05:40)
[2021-08-26 06:09] LABS: HEMATOCRIT 31.5 % (36.0-47.0); HEMOGLOBIN 10.5 g/dl (12.0-15.5); MEAN CORPUSCULAR HEMOGLOBIN 29.5 pg (27.0-33.0); MEAN CORPUSCULAR HGB CONC 33.3 g/dl (32.0-36.5); MEAN CORPUSCULAR VOLUME 88.5 fl (80.0-96.0); PLATELET COUNT, AUTOMATED 141 10^3/uL (150-450); RED BLOOD COUNT 3.56 10^6/uL (4.00-5.40); WHITE BLOOD COUNT 20.4 10^3/uL (4.0-10.0)
[2021-08-26 06:46] LABS: BLOOD UREA NITROGEN 14 MG/DL (7-18); CALCIUM LEVEL 8.2 MG/DL (8.8-10.2); CARBON DIOXIDE LEVEL 24 MEQ/L (21-32); CHLORIDE LEVEL 95 MEQ/L (98-107); CREATININE FOR GFR 0.66 MG/DL (0.55-1.30); GLOMERULAR FILTRATION RATE > 60.0 (>32); GLUCOSE, FASTING 128 MG/DL (70-100); POTASSIUM SERUM 3.3 MEQ/L (3.5-5.1); SODIUM LEVEL 125 MEQ/L (136-145)
[2021-08-26] MEDS ORDERED: POTASSIUM CHLORIDE 10MEQ SR TABLET PO ONE (07:30)
[2021-08-26 08:41] LABS: BILIRUBIN,DIRECT 0.3 MG/DL (0.0-0.2); BILIRUBIN,TOTAL 0.5 MG/DL (0.2-1.0); TOTAL PROTEIN 7.2 GM/DL (6.4-8.2)
[2021-08-26] MEDS: HEPARIN SOD (PORCINE) 5000UNITS/ML 1ML VIAL/SYRINGE SC SCH ×2 (08:50→20:20)
[2021-08-26] MEDS: NS 1,000 ML IV SCH ×2 (08:51→20:20)
[2021-08-26] MEDS: HYDROXYCHLOROQUINE 200 MG TAB PO SCH (08:52)
[2021-08-26] MEDS: DOCUSATE SODIUM 100MG CAPSULE PO SCH ×2 (08:53→20:20)
[2021-08-26] MEDS ORDERED: VANCOMYCIN HCL 1,000 MG, VIAL MATE ADAPTER 1 EACH in NS 250 ML IV SCH (11:55)
[2021-08-26] MEDS ORDERED: cefTRIAXone SOD 1 GM in D5W MINI-BAG PLUS 50 ML IV ONE (12:00)
[2021-08-26] MEDS: AMPICILLIN SOD/SULBACTAM SOD 3 GM in D5W MINI-BAG PLUS 100 ML IV SCH ×2 (12:54→20:21)
[2021-08-26 13:45] LABS: BLOOD UREA NITROGEN 15 MG/DL (7-18); CARBON DIOXIDE LEVEL 26 MEQ/L (21-32); CHLORIDE LEVEL 92 MEQ/L (98-107); CREATININE FOR GFR 0.63 MG/DL (0.55-1.30); GLOMERULAR FILTRATION RATE > 60.0 (>32); GLUCOSE, FASTING 121 MG/DL (70-100); POTASSIUM SERUM 3.7 MEQ/L (3.5-5.1); SODIUM LEVEL 126 MEQ/L (136-145)
[2021-08-27 00:04] VITALS: BP 165/79
[2021-08-27] MEDS ORDERED: ISOVUE-370 76% 100ML VIAL As Ordered ONE (01:59)
[2021-08-27] MEDS: AMPICILLIN SOD/SULBACTAM SOD 3 GM in D5W MINI-BAG PLUS 100 ML IV SCH ×2 (02:42→08:00)
[2021-08-27 03:45] VITALS: BP 159/73
[2021-08-27] MEDS ORDERED: HEPARIN SOD (PORCINE) 5000UNITS/ML 1ML VIAL/SYRINGE IV PRN (04:00)
[2021-08-27] MEDS: ACETAMINOPHEN TAB 650MG DOSE (2X325MG) PO PRN (04:05)
[2021-08-27 05:07] LABS: HEMATOCRIT 27.4 % (36.0-47.0); HEMOGLOBIN 9.4 g/dl (12.0-15.5); MEAN CORPUSCULAR HEMOGLOBIN 29.8 pg (27.0-33.0); MEAN CORPUSCULAR HGB CONC 34.3 g/dl (32.0-36.5); PLATELET COUNT, AUTOMATED 117 10^3/uL (150-450); RED BLOOD COUNT 3.15 10^6/uL (4.00-5.40); WHITE BLOOD COUNT 20.1 10^3/uL (4.0-10.0)
[2021-08-27 05:37] LABS: BLOOD UREA NITROGEN 11 MG/DL (7-18); CALCIUM LEVEL 7.8 MG/DL (8.8-10.2); CARBON DIOXIDE LEVEL 27 MEQ/L (21-32); CHLORIDE LEVEL 94 MEQ/L (98-107); CREATININE FOR GFR 0.61 MG/DL (0.55-1.30); GLOMERULAR FILTRATION RATE > 60.0 (>32); GLUCOSE, FASTING 123 MG/DL (70-100); POTASSIUM SERUM 3.5 MEQ/L (3.5-5.1); SODIUM LEVEL 124 MEQ/L (136-145)
[2021-08-27] MEDS: LEVOTHYROXINE 88MCG TABLET (0.088 MG) PO SCH (05:46)
[2021-08-27] MEDS ORDERED: HEPARIN SOD (PORCINE) 5000UNITS/ML 1ML VIAL/SYRINGE IV ONE (06:00)
[2021-08-27] MEDS ORDERED: HEPARIN DRIP 25,000 UNITS in IV 1 EA IV SCH (06:00)
[2021-08-27 08:00] VITALS: BP_SYST 162; BP_SYST 175; BP_DIAS 73; BP_DIAS 80
[2021-08-27] MEDS: HYDROXYCHLOROQUINE 200 MG TAB PO SCH (08:00)
[2021-08-27] MEDS: DOCUSATE SODIUM 100MG CAPSULE PO SCH (08:00)
[2021-08-27 11:45] VITALS: BP 156/74
== END 2021-08-27 12:46 | disposition short-term general hospital (02) | DRG 304 ==
LOC: M ED 11:53 → M ED INP 19:56 → ENRESERV 22:38 → M PCU 23:55
PROVIDERS: ADMIT Family Medicine; ATTEND Family Medicine
PROC: B246ZZZ Ultrasonography of Right and Left Heart (ICD-10-PCS; principal; 2021-08-27)
DX: I16.1 Hypertensive emergency (principal); A41.1 Sepsis due to other specified staphylococcus; E87.1 Hypo-osmolality and hyponatremia; I82.890 Acute embolism and thrombosis of other specified veins; M32.9 Systemic lupus erythematosus, unspecified; E03.9 Hypothyroidism, unspecified; Z96.643 Presence of artificial hip joint, bilateral; Z90.79 Acquired absence of other genital organ(s); Z20.822 Contact with and (suspected) exposure to COVID-19; Z79.899 Other long term (current) drug therapy; Z91.040 Latex allergy status; E87.6 Hypokalemia; K21.9 Gastro-esophageal reflux disease without esophagitis

== ENCOUNTER 2021-09-09 14:32 | Emergency (ER) | payer MEDICARE, BC ==
[~2021-09-09 14:32] MED LIST changes: +ACET650T61 PO; +D3 M1CAP2 PO; +OYST500T92 PO; +RA K500C PO; +SYNT88TA2 PO; +VITMTA PO
[2021-09-09] MEDS ORDERED: TRANEXAMIC ACID 100 MG/ML 10ML VIAL ONE (14:50)
[2021-09-09] MEDS ORDERED: OXYMETAZOLINE 0.05% NASAL SPRAY (AFRIN) ONE (14:50)
[2021-09-09 15:14] LABS: HEMATOCRIT 21.3 % (36.0-47.0); MEAN CORPUSCULAR HEMOGLOBIN 30.2 pg (27.0-33.0); MEAN CORPUSCULAR HGB CONC 32.9 g/dl (32.0-36.5); MEAN CORPUSCULAR VOLUME 91.8 fl (80.0-96.0); PLATELET COUNT, AUTOMATED 273 10^3/uL (150-450); RED BLOOD COUNT 2.32 10^6/uL (4.00-5.40); WHITE BLOOD COUNT 8.6 10^3/uL (4.0-10.0)
[2021-09-09 15:24] LABS: INR 1.95; PROTHROMBIN TIME 22.6 SECONDS (12.7-14.5)
[2021-09-09 16:31] LABS: BLOOD UREA NITROGEN 31 MG/DL (7-18); CARBON DIOXIDE LEVEL 22 MEQ/L (21-32); CHLORIDE LEVEL 101 MEQ/L (98-107); CREATININE FOR GFR 0.84 MG/DL (0.55-1.30); GLOMERULAR FILTRATION RATE > 60.0 (>32); GLUCOSE, FASTING 114 MG/DL (70-100); POTASSIUM SERUM 4.1 MEQ/L (3.5-5.1); SODIUM LEVEL 132 MEQ/L (136-145)
[2021-09-09] MEDS ORDERED: ONDANSETRON 4MG/2ML VIAL IV ONE (17:30)
[2021-09-09] MEDS ORDERED: MORPHINE 2 MG/ML 1ML VIAL IV PRN (17:30)
[2021-09-09] MEDS ORDERED: ONDANSETRON 4MG/2ML VIAL As Ordered ONE (17:32)
[2021-09-09 17:41] LABS: RSV AMPLIFICATION NEGATIVE (NEGATIVE)
[2021-09-09 19:15] VITALS: BP 171/79
== END 2021-09-09 19:35 | disposition short-term general hospital (02) ==
LOC: EDBD 14:32 → M ED 14:32
DX: R04.0 Epistaxis (principal); D64.9 Anemia, unspecified; I10 Essential (primary) hypertension; Z86.718 Personal history of other venous thrombosis and embolism; M32.9 Systemic lupus erythematosus, unspecified; Z87.09 Personal history of other diseases of the respiratory system; Z79.890 Hormone replacement therapy; Z79.899 Other long term (current) drug therapy; Z91.89 Other specified personal risk factors, not elsewhere classified
CPT/HCPCS: 80048; 85027; 85610; 86850; 86900; 86901; 87631; 96374; 96375; 99284; J2270; J2405

== ENCOUNTER → 2021-11-20 | Outpatient (REF) | payer MEDICARE, BC ==
[2021-11-20 13:19] LABS: INR 4.97; PROTHROMBIN TIME 46.2 SECONDS (12.7-14.5)
== END ==
LOC: M SFHCADAM 09:35
PROVIDERS: ATTEND Family Medicine
DX: Z79.01 Long term (current) use of anticoagulants (principal)

== ENCOUNTER → 2021-11-27 | Outpatient (CLI) | payer MEDICARE, BC ==
[2021-11-27 11:42] LABS: INR 1.74; PROTHROMBIN TIME 20.7 SECONDS (12.7-14.5)
== END ==
LOC: M LAB 10:57
PROVIDERS: ATTEND Physician Assistant
DX: Z79.01 Long term (current) use of anticoagulants (principal)

== ENCOUNTER → 2021-12-15 | Outpatient (REF) | payer MEDICARE, BC ==
[2021-12-15 17:43] LABS: HEMATOCRIT 32.2 % (36.0-47.0); HEMOGLOBIN 10.4 g/dl (12.0-15.5); MEAN CORPUSCULAR HEMOGLOBIN 27.8 pg (27.0-33.0); MEAN CORPUSCULAR HGB CONC 32.3 g/dl (32.0-36.5); MEAN CORPUSCULAR VOLUME 86.1 fl (80.0-96.0); PLATELET COUNT, AUTOMATED 138 10^3/uL (150-450); RED BLOOD COUNT 3.74 10^6/uL (4.00-5.40); WHITE BLOOD COUNT 5.5 10^3/uL (4.0-10.0)
[2021-12-15 18:35] LABS: ALBUMIN 3.9 GM/DL (3.2-5.2); ALT/SGPT 19 U/L (12-78); BILIRUBIN,TOTAL 0.2 MG/DL (0.2-1.0); BLOOD UREA NITROGEN 17 MG/DL (7-18); CALCIUM LEVEL 9.5 MG/DL (8.8-10.2); CARBON DIOXIDE LEVEL 29 MEQ/L (21-32); CHLORIDE LEVEL 104 MEQ/L (98-107); CREATININE FOR GFR 0.75 MG/DL (0.55-1.30); FERRITIN 51 NG/ML (8-252); GLOMERULAR FILTRATION RATE > 60.0 (>32); GLUCOSE, FASTING 90 MG/DL (70-100); POTASSIUM SERUM 4.3 MEQ/L (3.5-5.1); SODIUM LEVEL 135 MEQ/L (136-145); TOTAL PROTEIN 8.4 GM/DL (6.4-8.2)
== END ==
LOC: M SFHCPLAZ 16:51
PROVIDERS: ATTEND Internal Medicine Hematology
DX: D68.61 Antiphospholipid syndrome (principal)

== ENCOUNTER → 2022-02-22 | Outpatient (REF) | payer MEDICARE, BC ==
[2022-02-22 14:07] LABS: FREE T4 1.4 NG/DL (0.89-1.76)
[2022-02-22 14:08] LABS: THYROID STIMULATING HORMONE 1.835 uIU/ML (0.55-4.78)
== END ==
LOC: M SFHCADAM 10:33
PROVIDERS: ATTEND Physician Assistant
DX: E03.9 Hypothyroidism, unspecified (principal)

== ENCOUNTER → 2022-04-20 | Outpatient (CLI) | payer MEDICARE, BC | LOC: M PLALAB 15:06 | PROVIDERS: ATTEND Internal Medicine Hematology | DX: L93.0 Discoid lupus erythematosus (principal) ==

== ENCOUNTER → 2022-04-30 | Outpatient (REF) | payer MEDICARE, BC | LOC: M SFHCADAM 12:35 | PROVIDERS: ATTEND Family Medicine | DX: R09.81 Nasal congestion (principal) ==

== ENCOUNTER → 2022-05-27 | Outpatient (CLI) | payer MEDICARE, BC | LOC: M RAD 09:08 | PROVIDERS: ATTEND Otolaryngology | DX: J32.0 Chronic maxillary sinusitis (principal); J32.1 Chronic frontal sinusitis; J32.2 Chronic ethmoidal sinusitis; J32.3 Chronic sphenoidal sinusitis ==

== ENCOUNTER → 2022-07-19 | Outpatient (REF) | payer MEDICARE, BC ==
[2022-07-19 16:11] LABS: BASO % 0.6 % (0.0-1.0); EOS # 0.1 10^3/uL (0.0-0.5); EOS % 2.3 % (0.0-3.0); HEMATOCRIT 36.1 % (36.0-47.0); HEMOGLOBIN 11.6 g/dl (12.0-15.5); LYMPH # 1.4 10^3/uL (1.5-5.0); LYMPH % 29.1 % (24.0-44.0); MEAN CORPUSCULAR HEMOGLOBIN 30.1 pg (27.0-33.0); MEAN CORPUSCULAR HGB CONC 32.1 g/dl (32.0-36.5); MEAN CORPUSCULAR VOLUME 93.5 fl (80.0-96.0); MONO # 0.5 10^3/uL (0.0-0.8); MONO % 10.7 % (2.0-8.0); NEUTROPHILS # 2.8 10^3/uL (1.5-8.5); NEUTROPHILS % 56.9 % (36.0-66.0); PLATELET COUNT, AUTOMATED 153 10^3/uL (150-450); RED BLOOD COUNT 3.86 10^6/uL (4.00-5.40); WHITE BLOOD COUNT 4.8 10^3/uL (4.0-10.0)
[2022-07-19 16:16] LABS: ALBUMIN 4.1 G/DL (3.2-5.2); ALKALINE PHOSPHATASE 74 U/L (46-116); ALT/SGPT 27 U/L (7.0-40); AST/SGOT 36 U/L (<34); BILIRUBIN,TOTAL 0.4 MG/DL (0.3-1.2); BLOOD UREA NITROGEN 16 MG/DL (9-23); CALCIUM LEVEL 8.6 MG/DL (8.3-10.6); CARBON DIOXIDE LEVEL 31 MMOL/L (20-31); CHLORIDE LEVEL 98 MMOL/L (98-107); CREATININE FOR GFR 0.67 MG/DL (0.55-1.30); GLOMERULAR FILTRATION RATE > 60.0 (>32); GLUCOSE, FASTING 80 MG/DL (74-106); POTASSIUM SERUM 3.8 MMOL/L (3.5-5.1); SODIUM LEVEL 133 MMOL/L (136-145); TOTAL PROTEIN 7.5 G/DL (5.7-8.2)
== END ==
LOC: M SFHCADAM 14:00
PROVIDERS: ATTEND Family Medicine
DX: Z01.818 Encounter for other preprocedural examination (principal)

== ENCOUNTER → 2022-11-30 | Outpatient (REF) | payer MEDICARE, BC ==
[~2022-11-30] MED LIST changes: -HYDR200T3 PO; +HYDR200T46 PO
[2022-11-30 13:01] LABS: BASO % 0.7 % (0.0-1.0); BLOOD UREA NITROGEN 20 MG/DL (9-23); CALCIUM LEVEL 9.1 MG/DL (8.3-10.6); CARBON DIOXIDE LEVEL 31 MMOL/L (20-31); CHLORIDE LEVEL 100 MMOL/L (98-107); CREATININE FOR GFR 0.69 MG/DL (0.55-1.30); EOS # 0.1 10^3/uL (0.0-0.5); EOS % 2.2 % (0.0-3.0); GLOMERULAR FILTRATION RATE > 60.0 (>32); GLUCOSE, FASTING 77 MG/DL (74-106); HEMATOCRIT 35.4 % (36.0-47.0); HEMOGLOBIN 11.5 g/dl (12.0-15.5); LYMPH # 1.8 10^3/uL (1.5-5.0); LYMPH % 32.9 % (24.0-44.0); MAGNESIUM LEVEL 1.6 MG/DL (1.8-2.4); MEAN CORPUSCULAR HEMOGLOBIN 29.4 pg (27.0-33.0); MEAN CORPUSCULAR HGB CONC 32.5 g/dl (32.0-36.5); MEAN CORPUSCULAR VOLUME 90.5 fl (80.0-96.0); MONO # 0.7 10^3/uL (0.0-0.8); MONO % 11.9 % (2.0-8.0); NEUTROPHILS # 2.8 10^3/uL (1.5-8.5); NEUTROPHILS % 51.9 % (36.0-66.0); PLATELET COUNT, AUTOMATED 174 10^3/uL (150-450); POTASSIUM SERUM 3.9 MMOL/L (3.5-5.1); RED BLOOD COUNT 3.91 10^6/uL (4.00-5.40); SODIUM LEVEL 135 MMOL/L (136-145); WHITE BLOOD COUNT 5.5 10^3/uL (4.0-10.0)
[2022-11-30 13:04] LABS: FREE T4 1.34 NG/DL (0.89-1.76); THYROID STIMULATING HORMONE 2.865 uIU/ML (0.55-4.78)
== END ==
LOC: M SFHCADAM 10:26
PROVIDERS: ATTEND Physician Assistant
DX: R55 Syncope and collapse (principal); Z79.899 Other long term (current) drug therapy

== ENCOUNTER → 2023-04-05 | Outpatient (REF) | payer MEDICARE, BC ==
[2023-04-05 14:04] LABS: ALBUMIN 4.2 G/DL (3.2-5.2); ALKALINE PHOSPHATASE 61 U/L (46-116); ALT/SGPT 19 U/L (7.0-40); AST/SGOT 24 U/L (<34); BILIRUBIN,TOTAL 0.3 MG/DL (0.3-1.2); BLOOD UREA NITROGEN 18 MG/DL (9-23); CALCIUM LEVEL 9.8 MG/DL (8.3-10.6); CARBON DIOXIDE LEVEL 31 MMOL/L (20-31); CHLORIDE LEVEL 100 MMOL/L (98-107); CREATININE FOR GFR 0.69 MG/DL (0.55-1.30); FREE T4 1.37 NG/DL (0.89-1.76); GLOMERULAR FILTRATION RATE > 60.0 (>32); GLUCOSE, FASTING 102 MG/DL (74-106); POTASSIUM SERUM 3.7 MMOL/L (3.5-5.1); SODIUM LEVEL 134 MMOL/L (136-145); THYROID STIMULATING HORMONE 2.406 uIU/ML (0.55-4.78)
== END ==
LOC: M SFHCADAM 11:00
PROVIDERS: ATTEND Family Medicine
DX: I10 Essential (primary) hypertension (principal); E03.9 Hypothyroidism, unspecified

== ENCOUNTER → 2023-05-03 | Outpatient (REF) | payer MEDICARE, BC | LOC: M SFHCADAM 12:19 | PROVIDERS: ATTEND Family Medicine | DX: Z79.01 Long term (current) use of anticoagulants (principal) ==

== ENCOUNTER → 2023-06-21 | Outpatient (REF) | payer MEDICARE, BC | LOC: M SFHCADAM 10:29 | PROVIDERS: ATTEND Family Medicine | DX: Z79.01 Long term (current) use of anticoagulants (principal) ==

== ENCOUNTER → 2023-07-19 | Outpatient (CLI) | payer MEDICARE, BC | LOC: M ADAMS 11:57 | PROVIDERS: ATTEND Family Medicine | DX: M47.812 Spondylosis without myelopathy or radiculopathy, cervical region (principal) ==

== ENCOUNTER → 2023-07-19 | Outpatient (REF) | payer MEDICARE, BC | LOC: M SFHCADAM 11:54 | PROVIDERS: ATTEND Family Medicine | DX: Z79.01 Long term (current) use of anticoagulants (principal) ==

== ENCOUNTER → 2023-08-19 | Outpatient (CLI) | payer MEDICARE, BC | LOC: M PLARAD 10:27 | PROVIDERS: ATTEND Pain Medicine Interventional Pain Medicine | DX: M54.16 Radiculopathy, lumbar region (principal); M54.12 Radiculopathy, cervical region; M50.322 Other cervical disc degeneration at C5-C6 level; M99.61 Osseous and subluxation stenosis of intervertebral foramina of cervical region ==

== ENCOUNTER → 2023-10-20 | Outpatient (CLI) | payer MEDICARE, BC ==
[2023-10-20 07:10] LABS: INR 1.11
== END ==
LOC: M LAB 06:37
PROVIDERS: ATTEND Pain Medicine Interventional Pain Medicine
DX: M54.12 Radiculopathy, cervical region (principal)

== ENCOUNTER → 2023-10-31 | Outpatient (REF) | payer MEDICARE, BC | LOC: M SFHCADAM 09:06 | PROVIDERS: ATTEND Family Medicine | DX: Z79.01 Long term (current) use of anticoagulants (principal) ==

== ENCOUNTER → 2023-11-10 | Outpatient (CLI) | payer MEDICARE, BC ==
[2023-11-10 09:14] LABS: INR 1.15; PROTHROMBIN TIME 14.4 SECONDS (12.5-14.5)
== END ==
LOC: M LAB 07:57
PROVIDERS: ATTEND Pain Medicine Interventional Pain Medicine
DX: M54.16 Radiculopathy, lumbar region (principal)

== ENCOUNTER → 2023-11-16 | Outpatient (REF) | payer MEDICARE, BC | LOC: M SFHCADAM 10:40 | PROVIDERS: ATTEND Family Medicine | DX: Z79.01 Long term (current) use of anticoagulants (principal) ==

== ENCOUNTER → 2024-01-04 | Outpatient (CLI) | payer MEDICARE, BC ==
[2024-01-04 07:46] LABS: INR 1.1; PROTHROMBIN TIME 13.9 SECONDS (12.5-14.5)
== END ==
LOC: M LAB 07:01
PROVIDERS: ATTEND Pain Medicine Interventional Pain Medicine
DX: M47.812 Spondylosis without myelopathy or radiculopathy, cervical region (principal); Z79.01 Long term (current) use of anticoagulants

== ENCOUNTER → 2024-01-19 | Outpatient (CLI) | payer MEDICARE, BC ==
[2024-01-19 09:40] LABS: INR 1.15; PROTHROMBIN TIME 14.3 SECONDS (12.5-14.5)
== END ==
LOC: M LAB 07:02
PROVIDERS: ATTEND Pain Medicine Interventional Pain Medicine
DX: M47.812 Spondylosis without myelopathy or radiculopathy, cervical region (principal); Z79.01 Long term (current) use of anticoagulants

== ENCOUNTER → 2024-05-07 | Outpatient (REF) | payer MEDICARE, BC ==
[2024-05-07 18:36] LABS: BASO % 0.4 % (0.0-1.0); EOS # 0.1 10^3/uL (0.0-0.5); EOS % 1.1 % (0.0-3.0); HEMATOCRIT 33.7 % (36.0-47.0); HEMOGLOBIN 11.3 g/dl (12.0-15.5); LYMPH # 1.1 10^3/uL (1.5-5.0); LYMPH % 23.5 % (24.0-44.0); MEAN CORPUSCULAR HEMOGLOBIN 32.3 pg (27.0-33.0); MEAN CORPUSCULAR HGB CONC 33.5 g/dl (32.0-36.5); MEAN CORPUSCULAR VOLUME 96.3 fl (80.0-96.0); MONO # 0.5 10^3/uL (0.0-0.8); MONO % 11.1 % (2.0-8.0); NEUTROPHILS % 63.7 % (36.0-66.0); PLATELET COUNT, AUTOMATED 165 10^3/uL (150-450); WHITE BLOOD COUNT 4.8 10^3/uL (4.0-10.0)
[2024-05-07 18:40] LABS: ALT/SGPT 15 U/L (7.0-40); AST/SGOT 21 U/L (<34); BLOOD UREA NITROGEN 17 MG/DL (9-23); C REACTIVE PROTEIN QUANTITATIV < 0.50 MG/DL (<1.0); CREATININE FOR GFR 0.66 MG/DL (0.55-1.30); GLOMERULAR FILTRATION RATE > 60.0 (>32)
[2024-05-07 18:47] LABS: COMPLEMENT C3 94.2 MG/DL (90.0-170.0); COMPLEMENT C4 7.1 MG/DL (12-36)
[2024-05-07 18:48] LABS: ERYTHROCYTE SEDIMENTATION RATE 23 mm/hr (0-30)
== END ==
LOC: M LABDRWAD 17:16
PROVIDERS: ATTEND Nurse Practitioner
DX: M32.9 Systemic lupus erythematosus, unspecified (principal); Z79.899 Other long term (current) drug therapy

== ENCOUNTER → 2024-06-08 | Outpatient (REF) | payer MEDICARE, BC | LOC: M LAB REF 17:29 | PROVIDERS: ATTEND Nurse Practitioner Family | DX: R30.0 Dysuria (principal) ==

== ENCOUNTER → 2024-07-23 | Outpatient (CLI) | payer MEDICARE, BC ==
[~2024-07-23] MED LIST changes: +PRED-1142 PO; -PRED1TABL PO
[2024-07-23 13:41] LABS: BASO % 0.7 % (0.0-1.0); EOS # 0.2 10^3/uL (0.0-0.5); EOS % 4.2 % (0.0-3.0); HEMATOCRIT 33.6 % (36.0-47.0); HEMOGLOBIN 10.9 g/dl (12.0-15.5); LYMPH # 0.9 10^3/uL (1.5-5.0); LYMPH % 20.6 % (24.0-44.0); MEAN CORPUSCULAR HEMOGLOBIN 31.2 pg (27.0-33.0); MEAN CORPUSCULAR HGB CONC 32.4 g/dl (32.0-36.5); MEAN CORPUSCULAR VOLUME 96.3 fl (80.0-96.0); MONO # 0.5 10^3/uL (0.0-0.8); MONO % 10.5 % (2.0-8.0); NEUTROPHILS # 2.9 10^3/uL (1.5-8.5); NEUTROPHILS % 63.8 % (36.0-66.0); PLATELET COUNT, AUTOMATED 162 10^3/uL (150-450); RED BLOOD COUNT 3.49 10^6/uL (4.00-5.40); WHITE BLOOD COUNT 4.6 10^3/uL (4.0-10.0)
[2024-07-23 13:54] LABS: ERYTHROCYTE SEDIMENTATION RATE 27 mm/hr (0-30)
[2024-07-23 14:09] LABS: C REACTIVE PROTEIN QUANTITATIV 0.69 MG/DL (<1.0); COMPLEMENT C3 94.2 MG/DL (90.0-170.0); COMPLEMENT C4 8.3 MG/DL (12-36); CREATININE FOR GFR 0.69 MG/DL (0.55-1.30)
[2024-07-27 09:52] LABS: ANTI-SMOOTH MUSCLE ANTIBODY < 20 U (<20)
[2024-07-27 16:32] LABS: ANTI-HISTONE ANTIBODIES 1.1 U (<1.0)
[2024-07-28 22:33] LABS: ANTI DS-DNA AB NEGATIVE (NEGATIVE)
== END ==
LOC: M ADAMS 09:36
PROVIDERS: ATTEND Nurse Practitioner
DX: M32.9 Systemic lupus erythematosus, unspecified (principal); D68.62 Lupus anticoagulant syndrome; Z79.899 Other long term (current) drug therapy

== ENCOUNTER → 2024-08-14 | Outpatient (CLI) | payer MEDICARE, BC | LOC: M RAD 12:56 | PROVIDERS: ATTEND Family Medicine | DX: R29.90 Unspecified symptoms and signs involving the nervous system (principal); R09.89 Other specified symptoms and signs involving the circulatory and respiratory systems ==

== ENCOUNTER → 2024-10-23 | Outpatient (REF) | payer MEDICARE, BC ==
[~2024-10-23] MED LIST changes: -EQL50TAB2 PO; +LISI30TA4 PO; +VITA1TAB82 PO; +WARF-20 PO; +WARF-60 PO
[2024-10-23 14:08] LABS: BASO # 0.0 10^3/uL (0.0-0.2); BASO % 0.3 % (0.0-1.0); EOS # 0.1 10^3/uL (0.0-0.5); EOS % 2.8 % (0.0-3.0); LYMPH # 0.7 10^3/uL (1.5-5.0); LYMPH % 17.8 % (24.0-44.0); MONO # 0.6 10^3/uL (0.0-0.8); MONO % 14.7 % (2.0-8.0); NEUTROPHILS # 2.5 10^3/uL (1.5-8.5); NEUTROPHILS % 64.1 % (36.0-66.0); PLATELET COUNT, AUTOMATED 131 10^3/uL (150-450)
[2024-10-23 14:21] LABS: ALT/SGPT 16.0 U/L (7.0-40); AST/SGOT 28.0 U/L (<34); CALCIUM LEVEL 9.3 MG/DL (8.3-10.6); CARBON DIOXIDE LEVEL 27.0 MMOL/L (20-31); CHLORIDE LEVEL 97.0 MMOL/L (98-107); CREATININE FOR GFR 0.76 MG/DL (0.55-1.30); GLOMERULAR FILTRATION RATE 76.3 (>32); POTASSIUM SERUM 4.1 MMOL/L (3.5-5.1); SODIUM LEVEL 134.0 MMOL/L (136-145)
[2024-10-23 14:22] LABS: FREE T4 1.43 NG/DL (0.89-1.76)
== END ==
LOC: M SFHCADAM 09:24
PROVIDERS: ATTEND Family Medicine
DX: R29.90 Unspecified symptoms and signs involving the nervous system (principal); Z79.899 Other long term (current) drug therapy

== ENCOUNTER → 2024-12-05 | Outpatient (CLI) | payer MEDICARE, BC | LOC: M PLAIMG 10:06 | PROVIDERS: ATTEND Family Medicine | DX: J32.0 Chronic maxillary sinusitis (principal) ==

== ENCOUNTER → 2025-01-01 | Outpatient (REF) | payer MEDICARE, BC ==
[2025-01-01 17:26] LABS: INR 1.76
== END ==
LOC: M SFHCADAM 14:11
PROVIDERS: ATTEND Family Medicine
DX: Z79.01 Long term (current) use of anticoagulants (principal)

== ENCOUNTER → 2025-01-16 | Outpatient (CLI) | payer MEDICARE, BC ==
[2025-01-16 14:09] LABS: BASO # 0.0 10^3/uL (0.0-0.2); BASO % 0.7 % (0.0-1.0); EOS # 0.2 10^3/uL (0.0-0.5); EOS % 3.4 % (0.0-3.0); LYMPH # 1.0 10^3/uL (1.5-5.0); LYMPH % 22.7 % (24.0-44.0); MONO # 0.5 10^3/uL (0.0-0.8); MONO % 11.5 % (2.0-8.0); NEUTROPHILS # 2.7 10^3/uL (1.5-8.5); NEUTROPHILS % 61.5 % (36.0-66.0); PLATELET COUNT, AUTOMATED 169 10^3/uL (150-450)
[2025-01-16 14:42] LABS: C REACTIVE PROTEIN QUANTITATIV < 0.50 MG/DL (<1.0)
[2025-01-16 14:44] LABS: ALT/SGPT 18 U/L (7.0-40); AST/SGOT 30 U/L (<34); COMPLEMENT C4 5.2 MG/DL (12-36); CREATININE FOR GFR 0.71 MG/DL (0.55-1.30); GLOMERULAR FILTRATION RATE 82.8 (>32)
== END ==
LOC: M LABDRWAD 09:16
PROVIDERS: ATTEND Nurse Practitioner
DX: Z79.899 Other long term (current) drug therapy (principal)